=== PATIENT | female | born 1960 | race Caucasian/White ===

== ENCOUNTER → 2020-07-28 | Outpatient (CLI) | payer BC | LOC: KOH-I 16:11 | DX: M25.512 Pain in left shoulder (principal) | CPT/HCPCS: 73030 ==

== ENCOUNTER → 2020-08-07 | Outpatient (CLI) | payer MEDICARE | LOC: MRI 11:11 → CT 15:30 | DX: R91.8 Other nonspecific abnormal finding of lung field (principal); M25.512 Pain in left shoulder | CPT/HCPCS: 36415; 71260; 73221; 82565; Q9963 ==

== ENCOUNTER → 2020-11-02 | Outpatient (CLI) | payer MEDICARE | LOC: KOH-I 15:39 | DX: R07.81 Pleurodynia (principal); R05 Cough; R93.89 Abnormal findings on diagnostic imaging of other specified body structures | CPT/HCPCS: 71045; 71101 ==

== ENCOUNTER → 2021-08-19 | Outpatient (CLI) | payer MEDICARE | LOC: MAMO 08:49 | DX: Z12.31 Encounter for screening mammogram for malignant neoplasm of breast (principal) | CPT/HCPCS: 77063; 77067 ==

== ENCOUNTER 2021-10-13 15:57 | Emergency (ER) | payer MEDICARE ==
[2021-10-13 17:52] LABS: HEMOGLOBIN 14.7 gm/dl (12.3-15.3); RED BLOOD COUNT 4.81 M/UL (4.00-5.10); WHITE BLOOD COUNT 11.7 K/UL (4.5-11.0)
[2021-10-13 18:15] LABS: BUN/CREATININE RATIO 21 (0-10)
[2021-10-13] MEDS ORDERED: BENZONATATE200 MG PO (18:57)
[2021-10-13] MEDS ORDERED: CEFUROXIME500 MG PO (18:57)
== END 2021-10-13 19:14 | disposition home or self-care (01) ==
LOC: ER1 15:57
PROVIDERS: Preventive Medicine Occupational Medicine
DX: J44.0 Chronic obstructive pulmonary disease with (acute) lower respiratory infection (principal); J20.9 Acute bronchitis, unspecified; I10 Essential (primary) hypertension; Z20.822 Contact with and (suspected) exposure to COVID-19
CPT/HCPCS: 0240U; 71046; 72040; 72070; 80053; 85025; 86140; 93005; 96374; 96375; 99284; J0696; J1885

== ENCOUNTER → 2021-11-01 | Outpatient (CLI) | payer MEDICARE ==
[~2021-11-01] MED LIST: BENZONATATE200 MG PO; CEFUROXIME500 MG PO
== END ==
LOC: EXRD 08:57
DX: M85.89 Other specified disorders of bone density and structure, multiple sites (principal); M85.88 Other specified disorders of bone density and structure, other site; M85.852 Other specified disorders of bone density and structure, left thigh
CPT/HCPCS: 77080

== ENCOUNTER → 2022-03-31 | Outpatient (CLI) | payer MEDICARE | LOC: KOH-I 14:08 | DX: F17.210 Nicotine dependence, cigarettes, uncomplicated (principal); R91.1 Solitary pulmonary nodule | CPT/HCPCS: 71271 ==